=== PATIENT | male | born 1960 | race Caucasian/White ===

== ENCOUNTER → 2024-10-11 07:37 | Outpatient (REF) | payer BC, SELFPAY | LOC: HWRAD 07:37 | PROVIDERS: ATTENDING PHYSICIAN Nurse Practitioner Adult Health; FAMILY PHYSICIAN Family Medicine | DX: M54.2 Cervicalgia (principal); M96.0 Pseudarthrosis after fusion or arthrodesis | CPT/HCPCS: 72125 ==